=== PATIENT | female | born 1965 ===

== ENCOUNTER 2023-12-10 05:14 | Day surgery (SDC) | payer BC ==
[2023-12-10] VITALS (14 sets, daily range): BP systolic 101–124; BP diastolic 51–86; PULSE 73–87; TEMP 97.5–98
[~2023-12-10] VITALS: Ht 157.5 cm; Wt 105.5 kg
[~2023-12-10 05:14] MED LIST: LR 1,000 ML IV SCH
[2023-12-10] MEDS ORDERED: [UNRECOGNIZED DRUG - CODE] PO (05:26)
[2023-12-10] MEDS ORDERED: VITAMIND3 5000 PO (05:27)
[2023-12-10] MEDS ORDERED: VITAMIN K2100 MCG PO (05:28)
[2023-12-10] MEDS ORDERED: GLUCOSAMINE & C1 CA2 PO (05:28)
[2023-12-10] MEDS ORDERED: NIACINAMIDE500 MG PO (05:28)
[2023-12-10] MEDS ORDERED: THE MEDICINE S200 M2 PO (05:29)
[2023-12-10] MEDS ORDERED: [UNRECOGNIZED DRUG - OTHER] PO (05:29)
[2023-12-10] MEDS ORDERED: GELATIN PO (05:29)
[2023-12-10] MEDS ORDERED: MAGNESIUM CITR100 MG PO (05:30)
[2023-12-10] MEDS ORDERED: POTASSIUM CITRATE PO (05:30)
[2023-12-10] MEDS ORDERED: ZINC PO (05:31)
[2023-12-10] MEDS ORDERED: POTASSIUM IODIDE PO (05:31)
[2023-12-10] MEDS ORDERED: VITAMIN C500 MG PO (05:31)
[2023-12-10] MEDS ORDERED: [UNRECOGNIZED DRUG - OTHER] PO (05:32)
[2023-12-10] MEDS ORDERED: CATAPRES 0.1MG0.1 MG PO (05:33)
[2023-12-10] MEDS ORDERED: ORIGANUM OIL 1 M1 ML PO (05:33)
[2023-12-10] MEDS ORDERED: COZAAR 50MG50 MG/TAB PO (05:34)
[2023-12-10] MEDS ORDERED: ZITHROMAX 250M250 MG PO (06:13)
--- NOTE | 2023-12-10 06:16 | NUR ---
PATIENT REPORTED A "COUGH WITH A SCRATCHY THROAT AND FEVER" THAT STARTED ON 12/06/23. ZAHRA STATED THAT SHE CONTACTED 'S OFFICE ON 12/08/23, AND WAS STARTED ON AZITHROMYCIN. SEE MED REC FOR DETAILS. NO FEVER OR COUGH SINCE 12/08. NURSING STAFF CALLED DEWAYNE Sandy CRNA AND NOTIFIED HIM OF THIS. DEWAYNE Sandy CRNA OK TO PROCEED WITH THE CASE TODAY.
[2023-12-10] MEDS ORDERED: Midazolam 2 MG/2 ML VIAL ONE (06:24)
[2023-12-10] MEDS ORDERED: fentaNYL 50 MCG/ML 2 ML VIAL ONE (06:25)
[2023-12-10] MEDS ORDERED: Lidocaine PF 2% (20 MG/ML) 5 ML VIAL ONE (06:26)
[2023-12-10] MEDS ORDERED: NS 10 ML IV ONE ×2 (06:27→07:38)
[2023-12-10] MEDS ORDERED: dexAMETHasone 10 MG/ML VIAL ONE (06:27)
[2023-12-10] MEDS ORDERED: Ondansetron 4 MG/2 ML VIAL IV PRN ×2 (06:30→07:30)
[2023-12-10] MEDS ORDERED: Meperidine 50 MG/ML 1 ML VIAL IV PRN (06:30)
[2023-12-10] MEDS ORDERED: HYDROmorphone 1 MG/1 ML SYRINGE [PACU/SDC ONLY] IV PRN (06:30)
[2023-12-10] MEDS ORDERED: Morphine 2 MG/1 ML VIAL [PACU/SDC ONLY] IV PRN (06:30)
[2023-12-10] MEDS ORDERED: Tranexamic Acid 1,000 MG/10 ML VIAL ONE (06:34)
[2023-12-10] MEDS ORDERED: Mag/Al Hydrox/Simeth Susp 30 ML CUP PO PRN (07:30)
[2023-12-10] MEDS ORDERED: NS 1,000 ML IV SCH (07:30)
[2023-12-10] MEDS ORDERED: Magnes Hydrox (MOM) 80 MG/ML 30 ML CUP PO PRN (07:30)
[2023-12-10] MEDS ORDERED: Acetaminophen 500 MG TAB PO SCH (07:30)
[2023-12-10] MEDS ORDERED: Bisacodyl 5 MG TAB PO PRN (07:30)
[2023-12-10] MEDS ORDERED: Acetaminophen 500 MG TAB PO PRN (07:30)
[2023-12-10] MEDS ORDERED: Naloxone 0.4 MG/ML VIAL IV PRN (07:30)
[2023-12-10] MEDS ORDERED: Ketorolac 15 MG/ML VIAL IV SCH (07:30)
[2023-12-10] MEDS ORDERED: oxyCODONE 5 MG TAB PO PRN (07:30)
[2023-12-10] MEDS ORDERED: Morphine 4 MG/ML VIAL IV PRN (07:30)
[2023-12-10] MEDS ORDERED: ePHEDrine 50 MG/ML VIAL ONE (07:38)
[2023-12-10] MEDS ORDERED: Phenylephrine 10 MG/ML VIAL ONE (07:54)
[2023-12-10] MEDS ORDERED: Gentamicin 80 MG/50 ML IV.SOLN IR ONE (08:17)
[2023-12-10] MEDS ORDERED: Ketorolac 30 MG/ML VIAL IM ONE (08:17)
[2023-12-10] MEDS ORDERED: Morphine 4 MG/ML VIAL IM ONE ×2 (08:17)
[2023-12-10] MEDS ORDERED: Sennosides/Docusate 8.6-50 MG TAB PO SCH (09:00)
[2023-12-10] MEDS ORDERED: Ascorbic Acid 500 MG TAB PO SCH (09:00)
[2023-12-10] MEDS ORDERED: Magnes Hydrox (MOM) 80 MG/ML 30 ML CUP PO SCH (09:00)
[2023-12-10] MEDS ORDERED: Apixaban 2.5 MG TABLET PO SCH (09:00)
[2023-12-10] MEDS ORDERED: Thrombin Human (Recombinant) 5,000 UNITS VIAL TP ONE (09:50)
--- NOTE | 2023-12-10 11:19 | NUR ---
Pt arrived to the floor recently from [facility]. No complaints of pain at this time. Right knee with dressing and connie wrap all CDI. IV to left wrist with fluids infusing. Pt reports not having any urge to void at this time. She has Genaro hose to her left leg and SCDs bilaterally. Ice to her right knee. Oriented pt to her room. She reports not being hungry at this time, I did give her ice water. Spouse at bedside
--- NOTE | 2023-12-10 13:31 | NUR ---
Pt continues to do well with no complaints of pain. Drsg remains CDI with hemovac to compression. Pt reports that she does not need to void yet. IVF infusing at this time. Scheduled medication given. Pt is tolerating ice water, but has not wanted anything else up to this point. Call light within reach, will continue to monitor
[2023-12-10] MEDS ORDERED: ceFAZolin 2 G in Water For Injection,Sterile 20 ML IV SCH (14:45)
--- NOTE | 2023-12-10 15:20 | NUR ---
Pt has been up with PT/OT. She did amubate to the restroom and voided without difficulty. Pt is tolerating regular diet but states she is not very hungry.
--- NOTE | 2023-12-10 16:51 | NUR ---
Report given to Myron EDUARDO
--- NOTE | 2023-12-10 17:00 | NUR ---
HEAD TO TOE ASSESSMENT COMPLETED AT THIS TIME. PT A&OX4. PATIENT REPORTS NO PAIN, NAUSEA OR SOB AT THIS TIME. PT RESTING IN BED. CALL LIGHT WIHTIN REACH. NO FURTHER NEEDS AT THIS TIME.
--- NOTE | 2023-12-10 18:47 | NUR ---
PATIENT RESTING IN BED WITH TV OFF WITH NO FAMILY PRESENT WITH NO ACUTE DISTRESS NOTED. PATIENT ON ROOM AIR. NS INFUSING INTO LEFT WRIST WITH NO COMPLICATIONS NOTED. BEDSIDE REPORT COMPLETED WITH KIRIT AT THIS TIME. PATIENT REQUESTED HELP TO BATHROOM. PATIENT AMBULATED INTO BATHROOM WITH WALKER. PATIENT VOIDED AND THEN HELPED BACK TO BED WITH STAND BY ASSIST. GAIT STEADY. PATIENT DENIES ANY PAIN. PATIENT DENIES ANY OTHER NEEDS. BED IN LOW POSITION WITH WHEELS LOCKED WITH RAILS UP X3 AND CALL LIGHT WITHIN REACH.
[2023-12-10] MEDS ORDERED: Losartan 50 MG TAB PO SCH (21:00)
[2023-12-10] MEDS ORDERED: cloNIDine 0.1 MG TAB PO SCH (21:00)
[2023-12-10] MEDS ORDERED: Famotidine 20 MG TAB PO SCH (21:00)
--- NOTE | 2023-12-10 21:10 | NUR ---
PATIENT RESTING IN BED WITH TV OFF WITH NO FAMILY PRESENT WITH NO ACUTE DISTRESS NOTED. PATIENT ON ROOM AIR. NS INFUSING INTO LEFT WRIST WITH NO COMPLICATIONS NOTED. ASSESSMENT AND MEDICATION ADMINISTRATION COMPLETED AT THIS TIME. PATIENT TOLERATED WELL. PATIENT DENIES ANY PAIN AT THIS TIME. PATIENT DENIES ANY NEEDS. BED IN LOW POSITION WITH WHEELS LOCKED WITH RAILS UP X3 AND CALL LIGHT WITHIN REACH.
[2023-12-11] VITALS (8 sets, daily range): BP systolic 101–112; BP diastolic 67–75; PULSE 68–73; TEMP 97.6–98.6
--- NOTE | 2023-12-11 08:00 | NUR ---
PT AWAKE AND RESTING IN BED. AMBULATED TO TOILET, STANDBY W/ WALKER. HEMOVAC IN PLACE ON RIGHT KNEE. FLUIDS INT PER ORDER. PT TOLERATED PO FLUIDS. SCHEDULED MEDS GIVEN PER eMAR. PAIN 0/10. NO FURTHER CONCERNS. BED ALARM ON AND CALL LIGHT WITHIN REACH.
[2023-12-11] MEDS ORDERED: Azithromycin 250 MG TAB PO SCH (09:00)
--- NOTE | 2023-12-11 09:48 | NUR ---
SW met with patient to complete initial assessment for discharge planning. Patient verified that she lives in [facility] with her /DPOA Rob ([phone]) and 16 year old daughter. Patient sees Miesha Hare as her PCP and she uses [facility] pharmacy without difficulty. Patient states she has a cane, rollator walker and wheelchair at home. Patient does not have DPOA assigned to anyone and asked for the form to complete at a later time. Patient states she is scheduled for OP PT at [facility] in [facility] to start tomorrow at 1300. HERNESTO verified this appointment with the OP clinic and will fax discharge orders and clinicals when completed. Discharge plan: Home with OP PT
--- NOTE | 2023-12-11 10:25 | NUR ---
Initial visit; Patient thanked [employer] for looking in on her and offering God's blessings. She stated that her experience here at [facility] has been a very satisfactory experience. She said everyone has been so nice and so helpful. [employer] offered God's blessings and thanked Cherry for choosing [facility].
[2023-12-11] MEDS ORDERED: CEPHALEXIN500 M1 PO (18:33)
[2023-12-11] MEDS ORDERED: NORCO 325 MG-51 TAB PO (18:33)
[2023-12-11] MEDS ORDERED: ULTRAM 50MG TAB50 MG PO (18:34)
[2023-12-11] MEDS ORDERED: ELIQUIS 2.5 PO (18:35)
--- NOTE | 2023-12-11 18:37 | NUR ---
PATIENT UP AMBULATING IN ROOM WITH CLOTHES ON WITH TV OFF WITH NO FAMILY PRESENT. PATIENT ON ROOM AIR. INT TO LEFT WRIST INTACT WITH NO COMPLICATIONS NOTED. DRESSING TO RIGHT KNEE CLEAN, DRY, AND INTACT. HEMOVAC REMOVED BY DR. KELLY. BEDSIDE SHIFT REPORT COMPLETED WITH ANDREW AT THIS TIME. PATIENT WAITING TO BE DISCHARGED HOME. PATIENT DENIES ANY NEEDS AT THIS TIME. BED IN LOW POSITION WITH WHEELS LOCKED WITH RAILS UP X3 AND CALL LIGHT WITHIN REACH.
--- NOTE | 2023-12-11 18:41 | NUR ---
DR. KELLY IN TO SEE PATIENT AND DISCHARGE ORDERS RECIEVED.
--- NOTE | 2023-12-11 19:45 | NUR ---
PATIENT SITTING ON EDGE OF BED WITH TV OFF WITH AT BEDSIDE WITH NO ACUTE DISTESS NOTED. PATIENT ON ROOM AIR. INT TO LEFT WRIST INTACT WITH NO COMPLICATIONS NOTED. DRESSING TO RIGHT KNEE CLEAN, DRY, AND INTACT. INT TO LEFT WRIST REMOVED WITH CATHETER INTACT AND PRESSURE DRESSING APPLIED. PATIENT TOLERATED WELL. PATIENT ALERT AND ORIENTED. 1950: DISCHARGE INSTRUCTIONS GIVEN TO PATIENT AND AT THIS TIME. BOTH VERBALIZED UNDERSTANDING. DRESSING TO RIGHT KNEE CHAGED PER MD ORDER. BETADINE APPLED TO SUTURES AND DRAIN SITE. 4X4 GAUZE APPLIED TO DRAIN SITE AND ABD PAD PLACED OVER SUTURES. RENEA WRAP APPLIED TO KNEE. PATIENT TOLERATED WELL. 2005: PATIENT TRANSPORTED OUT TO [facility] WITH MARK IN PERSONAL WHEELCHAIR. ALL BELONGINGS TAKEN. PATIENT STABLE AND VITAL SIGNS WNL. ELIQUIS GIVEN PRIOR TO DISCHARGE. PATIENT DENIES ANY PAIN AT THIS TIME.
== END 2023-12-11 20:05 | disposition home or self-care (01) ==
LOC: SDCO 05:14 → EDSTATUS 07:30 → SURG 07:30 → SDCO 12-11 20:05
DX: M17.11 Unilateral primary osteoarthritis, right knee (principal); I10 Essential (primary) hypertension; E03.9 Hypothyroidism, unspecified; B19.20 Unspecified viral hepatitis C without hepatic coma; Z79.899 Other long term (current) drug therapy; Z79.01 Long term (current) use of anticoagulants
CPT/HCPCS: OP; A9284; C1713; C1763; C1776; J0665; J0688; J0690; J1100; J1580; J1885; J2250; J2270; J2371; J2704; J2795; J3010; J7030; J7120